=== PATIENT | male | born 1975 | race Asian ===

== ENCOUNTER 2024-07-18 11:02 | Outpatient (AMB) | payer OTHER, SELFPAY ==
--- NOTE | 2024-07-18 11:05 | A.OFFPC_ITS ---
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: No Allergies No Known Allergies Allergy (Verified 07/18/24 11:32) Medication List - Last [facility]18/24 [facility] No Known Home Meds Tobacco use date assessed: 07/18/24 Dental Screening Dental Screen Date: 07/18/24 Did you have a dental visit in the last 12 months?: Yes Did you have a dental problem in the last 6 months where you did not have access to dental care?: No Was dental information given to patient?: Patient has dentist HPI HPI Comments History of Present Illness Details 48-year-old male former smoker Social: has 3 children Family history: Hypertension and diabetes in grandparents otherwise noncontributory Surgical history: Denies Health Maintenance: ? Colon ordered today ? PSA ordered today ? Tdap declined, flu declined Specialists: None Here today to establish care and for complete physical exam. No previous medical records available. He reports no significant medical history. Patient was a former smoker smoking 1 pack per day for the last 20 years, quit May of 2024. Interested in the lung cancer screening program. Wears glasses and contacts overdue for eye exam Reports a new skin lesion that has been increasing in size to his right sabianism that has been noticed over the last few weeks. History of Present Illness Health Maintenance Social History Review of Systems Physical Exam General: Cooperative, healthy appearing, comfortable, no acute distress and well developed Orientation: Patient oriented x3 Limitations: No limitations Head: Normal to inspection Ears: Hearing grossly normal bilaterally, some wax in both ears Nose: Normal external nose present Face and sinus: Normal facial exam Eyes: Appearance normal, both eyes and all related structures, early cataracts noted Neck: Normal visual inspection, Yes full ROM, noted growth on neck Respiratory: Normal respiratory effort and able to speak in complete sentences. Clear to auscultation bilaterally Cardiovascular: Regular rate and rhythm. Normal S1 and S2 GI: Normal to inspection. Soft to palpation and nontender Skin: No rashes or lesions noted, couple of moles present, one on spine deeper into the skin Neuro: Patient oriented x3 Extremities: Normal to inspection, dry skin on feet, no swelling in ankles Plan - Former Tobacco Use: Lung cancer screen ing referral given to assess for any malignancy or precursors due to significant smoking history; advised cessation of smoking is beneficial. - Atypical skin lesions: Dermatology ref erral for evaluation and possible biopsy due to recent development and growth of the lesion. - Early Cataracts Suspected: Eye care re ferral provided for further evaluation and management of suspected early cataracts. - Wellness Examination: Ordered blood wo rk to screen for diabetes and heart disease at patient?s convenience. Discussed lifestyle and wellness management, advised annual wellness checks, and further check-ups as needed. Patient was informed and verbally consented to the use of an ambient scribe for clinic note documentation during this visit. Discussion Notes In today's visit, I discussed with the patient the importance of preventive health measures, including regular cancer screenings such as lung and colon cancer screenings. I explained the risks associated with her history of prolonged smoking and the benefits of obtaining a CT scan for lung cancer screening. The patient agreed to proceed with both screenings after understanding the rationale. Additionally, I addressed the importance of dermatologic evaluation for the recently noted lesion on her neck. I provided referrals for eye examinations due to the observation of early cataracts and discussed the role of regular eye check-ups in managing vision health. The patient was informed about the optional nature of updating the tetanus vaccination, and she opted not to proceed with it currently. Further, I emphasized the need for blood work to assess for conditions such as diabetes and cardiovascular disease. RTO 1 YEAR CPE SOONER PRN [facility] Medical History (Updated 07/18/24 @ 15:19 by Celine Oliveros, 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 home: Yes Do you presently have visiting nurse or other home services: No 75 years or older and lives alone: No Alcohol intake: current Alcohol intake frequency: a few times a month Patient Tobacco Use Status: Current everyday Tobacco user Tobacco use type: Cigarette Cigarette Packs Per Day: 1 Cigarettes Per Day: 20 Years Smoked: 20 e-Cigarette/Vaping Use: Never Used Second Hand Smoke Exposure: No service: No Current occupational status: employed 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 1. Little interest or pleasure in doing things: not at all 2. Feeling down, depressed, or hopeless: not at all 3. Trouble falling or staying asleep, or sleeping too much: not at all 4. Feeling tired or having little energy: not at all 5. Poor appetite or overeating: not at all 6. Feeling bad about yourself - or that you are a failure or have let yourself or your family down: not at all 7. Trouble concentrating on things, such as reading the newspaper or watching television: not at all 8. Moving or speaking so slowly that other people could have noticed. Or the opposite - being so fidgety or restless that you have been moving around a lot more than usual: not at all 9. Thoughts that you would be better off or of hurting yourself in some way: not at all Total score: 0 Depression Screening Interpretation: Negative Depression Screening Done: Yes 89610 - PHQ-9 Billing: Yes Source: Developed by Drs. Faustino Gore, Lita Jordan, Jagdeep Junior and colleagues, with an educational damir from [employer]. Thrive Questionnaire Date Thrive assessed: 07/18/24 I am a: Patient What is your living situation today?: I have a steady place to live Within the past 12 months, did the food you bought not last and you didn't have the money to get more?: Never true Within the past 12 months, did you worry whether your food would run out before you got money to buy more?: Never true Do you have trouble paying for medicines?: No Do you have trouble getting transportation to medical appointments?: No Do you have trouble paying your heating and electricity bill?: No Do you have trouble taking care of your child, family member or friend?: No Do you have trouble with day-to-day activities such as bathing, preparing meals, shopping, managing finances, etc.?: No Are you currently unemployed and looking for a job?: No Are you interested in more education?: No Please select the resources that you would like help with: None Currently or been in a relationship where the following occur: I choose not to answer THRIVE Score: 0 AUDIT C Alcohol Use Questionnaire (AUDIT-C) 1. How often do you have a drink containing alcohol?: 2-4 times a month 2. How many drinks containing alcohol do you have on a typical day when you are drinking?: 3 or 4 3. How often do you have six or more drinks on one occasion?: Monthly Total Score: 5 Score Reviewed/Action Taken: Yes JCARLOS-7 AMB Questionnaire JCARLOS-7 Date JCARLOS - 7 assessed: 07/18/24 Feeling nervous, anxious, or on edge: 0 = Not at all Not being able to stop or control worryin = Not at all Worrying too much about different things: 0 = Not at all Trouble relaxin = Not at all Being so restless that it is hard to sit still: 0 = Not at all Becoming easily annoyed or irritable: 0 = Not at all Feeling afraid as if something awful might happen: 0 = Not at all Total JCARLOS-7 score (0-4 normal; 5-9 mild; 10-14 moderate; 15-21 severe): 0 Source: Developed by Drs. Faustino Gore, Lita Jordan, Jagdeep Junior and colleagues, with an educational damir from [employer]. JCARLOS-7 Assessment Billing JCARLOS-7 Assessment Tool: JCARLOS-7 Assessment 06472 Physical exam (Primary Care) Vital Signs: Last Vital Signs Pulse 120 H 07/18/24 11:12 Resp 14 07/18/24 11:12 BP 138/78 07/18/24 11:12 Pulse Ox 96 07/18/24 11:12 Oxygen Delivery Method Simple Mask 07/18/24 11:12 BMI result Body Mass Index 22.8 Tobacco/Smoking Status: Tobacco use Status Tobacco use date assessed 12/11/24 12/11/24 11:14 Patient Tobacco Use Status Current everyday Tobacco 07/18/24 11:14 Tobacco use type Cigarette 07/18/24 11:14 e-Cigarette/Vaping Use Never Used 07/18/24 11:14 PHQ-9: PHQ-9 Score PHQ-9: Total score 0 07/18/24 11:37 Depression Screening Interpretation: Negative Thrive Assessment: Date of Thrive Assessment Date Thrive assessed 07/18/24 07/18/24 11:08 Currently or been in a relationship where the following occur: I choose not to answer Const Other: General: Well developed, well nourished, in no acute distress. Appears stated age. Head: Normocephalic, atraumatic. Eyes: Pupils are equal, round and reactive to light and accommodation. Conjunctivae are clear. Vision grossly normal. Clouding around iris bilat Ears: TMs clear AU, EACS WNL Nose: Patent, without discharge. Mouth: There are no ulcers or lesions noted. No inflammation, no post nasal drip, no plaques nor exudates. Neck: Supple, no adenopathy or thyromegaly. Lungs: Clear to auscultation bilaterally. No rales, rhonchi or wheeze noted. Good air flow in all rotega. Heart: Regular rate and rhythm. No murmurs, click, rubs or gallops are noted. Abdomen: Bowel sounds present in all quadrants. The abdomen is soft, nontender, with no masses or organomegaly noted. No hernias are noted. Musculoskeletal: Joints are nontender, without swelling, redness, or effusions. Range of motion is observed to be normal. Pulses: Peripheral pulses are equal and palpable bilaterally. Extremities: No clubbing, cyanosis nor edema is noted. Neurologic: Gait and station normal. Cranial Nerves 2-12 intact. Motor strength grossly symmetrical and intact. No sensory loss. Balance normal. Skin: No rashes, ulcers, or lesions noted. Turgor is good. Skin color is good. Hair and nails are without abnormalities, right sabianism is a raised painless lump about the size a marble, on the skin overlying the spine in between his shoulder blades is a flat black atypical appearing mole. Psych: Normal eye contact, affect and mood appropriate, and normal interactions. Patient is alert and appropriate to context. Coding Level of Care Code New Pt Prev Care 40-64y(45514) Diagnoses Encounter for general adult medical examination without abnormal findings Z00.00 Tobacco dependence F17.200 Tetanus, diphtheria, and acellular pertussis (Tdap) vaccination declined Z28.21 Blurred vision, bilateral H53.8 Laboratory exam ordered as part of routine general medical examination Z00.00 Atypical mole D22.9 Face lesion L98.9 Additional Codes JCARLOS-7 Assessment Billing - JCARLOS-7 Assessment Tool: JCARLOS-7 Assessment 34909 ([id number]) PHQ-9 - 27246 - PHQ-9 Billing: Yes ([id number]) Assessment & Plan Assessment & Plan (1) Encounter for general adult medical examination without abnormal findings: Code(s): Z00.00 - Encounter for general adult medical examination without abnormal findings (2) Tobacco dependence: Comment: QUIT 05/2024, 20 PACK YEAR HISTORY Code(s): F17.200 - Nicotine dependence, unspecified, uncomplicated Category: Medical (3) Tetanus, diphtheria, and acellular pertussis (Tdap) vaccination declined: Code(s): Z28.21 - Immunization not carried out because of patient refusal Category: Medical (4) Blurred vision, bilateral: Code(s): H53.8 - Other visual disturbances Category: Medical (5) Laboratory exam ordered as part of routine general medical examination: Code(s): Z00.00 - Encounter for general adult medical examination without abnormal findings Category: Medical (6) Atypical mole: Comment: ON BACK; Code(s): D22.9 - Melanocytic nevi, unspecified Category: Medical (7) Face lesion: Comment: RAISED SKIN LESION RIGHT SCIENTOLOGIST Code(s): L98.9 - Disorder of the skin and subcutaneous tissue, unspecified Category: Medical Plan . Orders: Orders Complete Blood Count no Diff Today Z00.00 - Encounter for general adult medical examination without abnormal findings Hemoglobin A1c Today Z00.00 - Encounter for general adult medical examination without abnormal findings Lipid Panel Today Z00.00 - Encounter for general adult medical examination without abnormal findings Microalbumin, Random (w Creat) Today Z00.00 - Encounter for general adult medical examination without abnormal findings Comprehensive Met. Panel Today Z00.00 - Encounter for general adult medical examination without abnormal findings PSA, Ultra Sensitive Today Z00.00 - Encounter for general adult medical examination without abnormal findings TSH reflex Free T4 Today Z00.00 - Encounter for general adult medical examination without abnormal findings Vitamin B12 and Folate Today Z00.00 - Encounter for general adult medical examination without abnormal findings Vitamin D 25-OH Total Today Z00.00 - Encounter for general adult medical examination without abnormal findings Referrals Lung Cancer Screening Referral F17.200 - Nicotine dependence, unspecified, uncomplicated Open Access Screening Colonoscopy Referral Z12.11 - Encounter for screening for malignant neoplasm of colon, Z12.12 - Encounter for screening for malignant neoplasm of rectum Ophthalmology Referral H53.8 - Other visual disturbances Dermatology Referral D22.9 - Melanocytic nevi, unspecified, L98.9 - Disorder of the skin and subcutaneous tissue, unspecified Patient Instructions: Walk-In Care (Urgent Care): We Make it Easy Walk-in for urgent medical issues such as: ? Seasonal Allergies ? Insect Bites ? Cough ? Diarrhea ? Acute Asthma Attacks ? Back, Knee or Joint Pain ? Ear Infection ? Fever without a Rash ? Headaches ? Nausea ? [place], Rash or Skin Irritation ? Sore Throat ? Sports Physicals ? Vomiting Most insurances are accepted. Patients do not need to be part of the [facility] to seek care at the walk-in clinic. Locations [facility] [place] [address] ? [phone] [facility] [facility] in [place] provides services to ages 18 and over. Open Tuesday-Tuesday: 8 a.m. to 5 p.m. and Tuesday: 9 a.m. to 3 p.m.* *Hours may vary due to staffing availability. To confirm Walk-In Care hours in [place], please call [phone]. [address] [place] [address] ? [phone] [facility] in [place] provides services to ages 12 and over. Open Tuesday-Tuesday: 8 a.m. to 5 p.m. Hours may vary due to staffing availability. To confirm Walk-In Care hours in [place], please call [phone]. LABORATORY SERVICES: [facility] Lab ? Primary Location [address] [place] [address] Tuesday through Tuesday 6:00 AM ? 5:00 PM Tuesday 7:00 AM ? 11:00 AM* [phone] The [facility] Lab is centrally located near the front entrance of the Medical Center for easy outpatient access. Convenient parking is provided for outpatients. *Hours may vary due to staffing availability. To confirm Laboratory hours for any location, please call [phone]. Offsite Location For your convenience, we offer offsite laboratory draw stations at the following locations: [address] [facility], [place] [address] [facility], [address], [place] Tuesday through Tuesday 7:30 AM ? 1:00 PM* [phone] *Hours may vary due to staffing availability. To confirm Laboratory hours for any location, please call [phone] ? [facility] [address] [facility], [place] Tuesday through Tuesday 6:00 AM ? 3:30 PM* Tuesday 6:30 AM ? 3 PM* [phone] *Hours may vary due to staffing availability. To confirm Laboratory hours for any location, please call [phone] [place] [address] Tuesday through Tuesday 7:30 AM ? 4:00 PM* [phone] *Hours may vary due to staffing availability. To confirm Laboratory hours for any location, please call [phone] [place] [address] Tuesday through 9:00 AM ? 4:00 PM* *Hours may vary due to staffing availability. To confirm Laboratory hours for any location, please call [phone]. Appointments are not necessary. Walk-ins are welcome. Like all the departments throughout the [facility], our Lab undergoes frequent reviews to ensure the quality and accuracy of test results, and our staff takes special pride in its status as a nationally accredited facility. Patient Portal: ONE PATIENT. ONE RECORD. BETTER CARE. [facility] has a fully integrated, cutting- edge mobile electronic health information system that has revolutionized the way we care for our patients and manage our organization. This system improves communication and coordination enabling us to provide safe, higher-quality care, and an overall positive experience for staff and patients. Our first priority, as always, is to deliver the highest quality care possible. The system is running in the background supporting that priority. This portal is for all [facility] services and practices. If you are experiencing any technical difficulties with enrolling or logging into the Patient Portal please complete the [facility] Patient Portal Technical Support Form. [facility] now offers a new secure on-line interactive tool for patients to review their health information ? Patient Portal. This interactive web portal will enable patients and their families to take an active role in their care by providing easy, secure access to their health information via the internet. The Patient Portal provides patients with instant access to their health information, including laboratory results, medications, allergies, demographic information, visit history, and more. In addition to managing their own care, parents and health care proxies with authorized consent will appreciate the ability to access the records of those individuals for whom they provide care. Please note: if you wish to gain access (Proxy) to another patient?s portal, you will be required to come to the Medical Records Department in person at [facility]. Both the patient giving proxy access and the proxy will need to provide photo identification and complete the appropriate authorization. The Patient Portal also allows track their appointments online. The [facility] Patient Portal also saves patients time by allowing them to submit updates to their demographic and contact information prior to their visits. Portal email notifications will also alert patients to any new activity on their portal, such as test results and new appointments. In order to initially enroll in the [facility] Patient Portal, you will need to enter some required information including the following: ? your [facility] Medical Record number ? your personal home email address ? name ? date of Please note: In order to enroll in the [facility] Patient Portal, we need to have your email address on file in your electronic medical record. The email address needs to be specific for one person (yourself) in order for your Portal enrollment to be successful. You can update your email address in person with our Registration staff when you are registering for a hospital visit. Otherwise, you will need to come to the Health Information Management (Medical Records) Department at [facility]. We are open from Tuesday ? Tuesday from 7:30 a.m. ? 4:30 p.m. You will be required to present a photo id. Once you have successfully enrolled in the Patient Portal, you will receive a one-time user id and password for the Portal, sent to your email address. This will allow you to log into the Patient Portal within 99 hrs and reset your own logon id and password, and define personal security questions. Once your permanent login and password have been set, you can log into the [facility] Patient Portal at any time via the blue button above or from the Portal Logon button on any page of the [facility] website. [facility] and [facility] encourage all of our patients to enroll in Patient Portal as it presents a valuable opportunity for patients and their families to actively participate in their care and stay healthy Welcome to [facility]. We look forward to working with you. Health screenings for men ages 40 to 64 You should visit your health care provider regularly, even if you feel healthy. The purpose of these visits is to: Screen for medical issues Assess your risk for future medical problems Encourage a healthy lifestyle Update vaccinations and other preventive care services Help you get to know your provider in case of an illness Information Even if you feel fine, you should still see your provider for regular checkups. These visits can help you avoid problems in the future. For example, the only way to find out if you have high blood pressure is to have it checked regularly. High blood sugar and high cholesterol level also may not have any symptoms in the early stages. Simple blood tests can check for these conditions. There are specific times when you should see your provider or receive specific health screenings. The [place] Preventive Services Task Force publishes a list of recommended screenings. Below are screening guidelines for men ages 40 to 64. BLOOD PRESSURE SCREENING Have your blood pressure checked at least once every year. Watch for blood pressure screenings in your area. Ask your provider if you can stop in to have your blood pressure checked. Ask your provider if you need your blood pressure checked more often if: You have diabetes, heart disease, kidney problems, or are overweight or have certain other health conditions You have a first-degree relative with high blood pressure You are Black Your blood pressure top number is from 120 to 129 mm Hg, or the bottom number is from 70 to 79 mm Hg If the top number is 130 mm Hg or greater or the bottom number is 80 mm Hg or greater, this is considered stage 1 hypertension. Schedule an appointment with your provider to learn how you can lower your blood pressure. Effects of age on blood pressure CHOLESTEROL SCREENING Cholesterol screening should begin at age 35 for men with no known risk factors for coronary heart disease. Repeat cholesterol screening should take place: Every 5 years for men with normal cholesterol levels More often if changes occur in lifestyle (including weight gain and diet) More often if you have diabetes, heart disease, kidney problems, or certain other conditions COLORECTAL CANCER SCREENING If you are under age 45, talk to your provider about getting screened. You may need to be screened if you have a strong family history of colon cancer or polyps. Screening may also be considered if you have risk factors such as a history of inflammatory bowel disease or polyps. If you are age 45 to 75, you should be screened for colorectal cancer. There are several screening tests available: A stool-based fecal occult blood (gFOBT) or fecal immunochemical test (FIT) every year A stool sDNA test every 1 to 3 years Flexible sigmoidoscopy every 5 years or every 10 years with stool testing FIT done every year CT colonography (virtual colonoscopy) every 5 years Colonoscopy every 10 years You may need a colonoscopy more often if you have risk factors for colorectal cancer, such as: Ulcerative colitis A personal or family history of colorectal cancer A history of growths in your colon called adenomatous polyps DENTAL EXAM Go to the dentist once or twice every year for an exam and cleaning. Your dentist will evaluate if you have a need for more frequent visits. DIABETES SCREENING All adults who do not have risk factors for diabetes should be screened starting at age 35 and repeated every 3 years. If you have other risk factors for diabetes, such as a first degree relative with diabetes, overweight or obesity, high blood pressure, prediabetes, or a history of heart disease, you may be tested more often. If you are overweight and have other risk factors, such as high blood pressure and are planning to become , screening is recommended. EYE EXAM Have an eye exam every 2 to 4 years ages 40 to 54 and every 1 to 3 years ages 55 to 64. Your provider may recommend more frequent eye exams if you have vision problems or glaucoma risk. Have an eye exam that includes an examination of your retina (back of your eye) at least every year if you have diabetes. IMMUNIZATIONS Commonly needed vaccines include: Flu shot: get one every year COVID-19 vaccine: ask your provider what is best for you Tetanus-diphtheria and acellular pertussis (Tdap) vaccine: have as one of your tetanus-diphtheria vaccines if you did not receive it as an adolescent Tetanus-diphtheria: have a booster (or Tdap) every 10 years Varicella vaccine: receive 2 doses if you never had chickenpox or the varicella vaccine and were born in 1980 or after Hepatitis B vaccine: receive 2, 3, or 4 doses, depending on your exact circumstances, if you did not receive these as a child or adolescent, until age 59 Shingles (herpes zoster) vaccine: at or after age 50 Ask your provider if you should receive other immunizations, especially if you have certain medical conditions, such as diabetes or are at increased risk for some diseases such as pneumonia. INFECTIOUS DISEASE SCREENING Screening for hepatitis C: all adults ages 18 to 79 should get a one-time test for hepatitis C. Screening for human immunodeficiency virus (HIV): all people ages 15 to 65 should get a one-time test for HIV. Depending on your lifestyle and medical history, you may need to be screened for infections such as syphilis, chlamydia, and other infections. LUNG CANCER SCREENING You should have an annual screening for lung cancer with low-dose computed tomography (LDCT) if: You are age 50 to 80 years AND You have a 20 pack-year smoking history AND You currently smoke or have quit within the past 15 years OSTEOPOROSIS SCREENING If you are age 50 to 64 and have risk factors for osteoporosis, you should discuss screening with your provider. Risk factors can include long-term steroid use, low body weight, smoking, heavy alcohol use, having a fracture after age 50, or a family history of hip fracture or osteoporosis. Osteoporosis PHYSICAL EXAM All adults should visit their provider from time to time, even if they are healthy. The purpose of these visits is to: Screen for diseases Assess risk of future medical problems Encourage a healthy lifestyle Update vaccinations and other preventive care services Maintain a relationship with a provider in case of an illness Your height, weight, and body mass index (BMI) should be checked at every exam. During your exam, your provider may ask you about: Depression and anxiety Diet and exercise Alcohol and tobacco use Safety, such as use of seat belts and smoke detectors Your medicines and risk for interactions PROSTATE CANCER SCREENING If you're 55 through 69 years old, before having the test, talk to your provider about the pros and cons of having a PSA test. Ask about: Whether screening decreases your chance of dying from prostate cancer. Whether there is any harm from prostate cancer screening, such as side effects from testing or overtreatment of cancer when discovered. Whether you have a higher risk of prostate cancer than others. If you are age 55 or younger, screening is not generally recommended. You should talk with your provider about if you have a higher risk for prostate cancer. Risk factors include: Having a family history of prostate cancer (especially a brother or father) Being If you choose to be tested, the PSA blood test is repeated over time (yearly or less often), though the best frequency is not known. Prostate examinations are no longer routinely done on men with no symptoms. Prostate cancer SKIN EXAM Your provider may check your skin for signs of skin cancer, especially if you're at high risk. People at high risk include those who have had skin cancer before, have close relatives with skin cancer, or have a weakened immune system. TESTICULAR EXAM The [place] Preventive Services Task Force (USPSTF) now recommends against performing testicular self-exams. Doing testicular self-exams has been shown to have little to no benefit.
[2024-07-18 11:12] VITALS: BP 138/78; PULSE 120; RESP 14; O2SAT 96; BMI 22.8
[2024-07-18 15:16] VITALS: PULSE 99
== END 2024-07-18 11:49 | disposition home or self-care (01) ==
PROVIDERS: Visit Provider Nurse Practitioner Family
DX: Z00.00 Encounter for general adult medical examination without abnormal findings (principal); F17.200 Nicotine dependence, unspecified, uncomplicated; Z28.21 Immunization not carried out because of patient refusal; H53.8 Other visual disturbances; D22.9 Melanocytic nevi, unspecified; L98.9 Disorder of the skin and subcutaneous tissue, unspecified

== ENCOUNTER → 2024-07-18 11:02 | Outpatient (BNVA) | payer OTHER, SELFPAY | PROVIDERS: Visit Provider Nurse Practitioner Family | DX: Z00.01 Encounter for general adult medical examination with abnormal findings (principal); H53.8 Other visual disturbances; D22.5 Melanocytic nevi of trunk; L98.9 Disorder of the skin and subcutaneous tissue, unspecified; Z87.891 Personal history of nicotine dependence | CPT/HCPCS: 96127 ==

== ENCOUNTER 2024-08-20 15:30 | Outpatient (AMB) | payer OTHER, SELFPAY ==
--- NOTE | 2024-08-20 16:19 | A.OFFPC_ITS ---
Intake Visit Reasons: referral urogoly Allergies No Known Allergies Allergy (Verified 08/20/24 16:40) Medication List - Last Reconciled 08/20/24 by KATIANA Yang No Known Home Meds Tobacco use date assessed: 08/20/24 Dental Screening Dental Screen Date: 08/20/24 Did you have a dental visit in the last 12 months?: Yes Did you have a dental problem in the last 6 months where you did not have access to dental care?: No Was dental information given to patient?: Patient has dentist HPI HPI Comments History of Present Illness Details 49-year-old male former smoker Social: has 3 children Family history: Hypertension and diabetes in grandparents otherwise noncontributory Surgical history: Denies Health Maintenance: ?Colon ordered today ?PSA ordered today ?Tdap declined, flu declined Specialists: None Telehealth visit today @ [phone] The patient is a 49-year-old female presenting with urinary complaints. The patient reports that these symptoms have been occurring for approximately six months. She describes the urgency of urination, with an inability to control it if the urge is strong. The urinary output initially seemed minimal, approximately 4 to 5 ounces. Over time, the capacity to hold increased to about 24 ounces, as measured by the patient. The symptoms occurred during the night, necessitating trips to the bathroom. The patient has taken a self-directed approach by using measurements to confirm the changes in her urination pattern. Additionally, the patient experiences bowel incontinence, particularly when there is minimal stool content. There have been no prior examinations or treatments during this conversation regarding these urinary complaints. Review of Systems - Genitourinary: Reports urinary urgency , decreased urine volume, and increased capacity to hold urine. - Gastrointestinal: Reports bowel incont inence with minimal stool content. Discussion Notes During the discussion, I explained to the patient the importance of obtaining blood work and a urinalysis to evaluate her urinary issues. Potential involvement of the prostate was discussed as a factor affecting urination changes. Additionally, I advised that the patient should visit the lab located at our [place] office within the next few days for these tests, emphasizing the convenience and availability Tuesday through Tuesday. For the bowel incontinence, I explained that I placed a referral for a colonoscopy to further investigate, and shared that it is an important procedure to understand the underlying cause. Plan - Complete blood tests ordered at last v isit and new order for urinalysis to evaluate urinary complaints, with focus on prostate health, and to rule out infections. - Schedule a screening colonoscopy with a gastroenterology specialist to evaluate bowel incontinenc - referral placed @ last office visit. - Follow up with lab results and adjust the management plan accordingly. Patient was informed and verbally consented to the use of an ambient scribe for clinic note documentation during this visit. Patient Instructions - Go to the [place] office for blood w ork and urinalysis Tuesday through Tuesday from 7:30 AM to 3:30 PM. - Follow up on scheduling a colonoscopy appointment for the bowel incontinence evaluation. - Report any significant changes or wors ening in symptoms promptly. - Direct all questions or concerns to [facility] office for clarification or further instructions. This note is constructed using voice recognition software. While every effort has been made to ensure accuracy in choir director, still errors may have been included Sometimes, these errors may affect the content or meaning of the given sentence . Total time spent caring for the patient today was 20 minutes. This includes time spent before the visit reviewing the chart, time spent during the visit, and time spent after the visit on documentation Call at [phone] - no answer. message left. Called again at 1641. answered. Gave me new phone # as above Successful contact w/ pt on third attempt [facility] Medical History (Updated 08/20/24 @ 16:51 by Celine Oliveros, [facility]) No pertinent past medical history Surgical History (Updated 07/18/24 @ 11:12 by Jade Rajan MA) No pertinent past surgical history Family History Paternal Grandmother Diabetes Hypertension Social History (Updated 07/18/24 @ 11:10 by Jade Rajan MA) Household Members: Spouse and Children Housing: Apartment Are you a primary youth care worker to a significant other at home: Yes Do you presently have visiting nurse or other home services: No Alcohol intake: current Alcohol intake frequency: a few times a month Patient Tobacco Use Status: Current everyday Tobacco user Tobacco use type: Cigarette Cigarette Packs Per Day: 1 Cigarettes Per Day: 20 Years Smoked: 20 e-Cigarette/Vaping Use: Never Used Second Hand Smoke Exposure: No service: No Current occupational status: employed 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 Faustino Gore, Lita Jordan, Jagdeep Junior and colleagues, with an educational damir from [employer]. Physical exam (Primary Care) Tobacco/Smoking Status: Tobacco use Status Tobacco use date assessed 07/18/24 08/20/24 16:19 Patient Tobacco Use Status Current everyday Tobacco 08/20/24 16:19 Tobacco use type Cigarette 08/20/24 16:19 e-Cigarette/Vaping Use Never Used 08/20/24 16:19 Thrive Assessment: Date of Thrive Assessment Date Thrive assessed 07/18/24 08/20/24 16:19 Telehealth Telehealth Telehealth Platform: [facility] Location of provider rendering services: practice address Location of patient: address on file Patient Identification confirmed using: Name, : Yes Telehealth method: voice only Patient verbally consented to treatment: Yes Patient verbally consented to billing insurance company: Yes Patient informed of any privacy concerns related to visit: Yes Coding Level of Care Code Tele Est Pt Level 3 (03447) Complex EM visit Add On G2211 Diagnoses Urge incontinence of urine N39.41 Urinary Incontinence type: urge incontinence Incontinence of feces, unspecified fecal incontinence type R15.9 Fecal incontinence type: unspecified Assessment & Plan Assessment & Plan (1) Urinary incontinence: Code(s): R32 - Unspecified urinary incontinence Category: Medical Qualifiers: Urinary Incontinence type: urge incontinence Qualified Code(s): N39.41 - Urge incontinence (2) Fecal incontinence: Code(s): R15.9 - Full incontinence of feces Category: Medical Qualifiers: Fecal incontinence type: unspecified Qualified Code(s): R15.9 - Full incontinence of feces Plan . Orders: Orders UA CC w/rflx Micro + Cult Today R32 - Unspecified urinary incontinence
== END 2024-08-20 17:05 | disposition home or self-care (01) ==
LOC: HO.HMCFM 15:30
PROVIDERS: PCP Nurse Practitioner Family; Visit Provider Nurse Practitioner Family
DX: N39.41 Urge incontinence (principal); R15.9 Full incontinence of feces

== ENCOUNTER → 2024-08-20 15:30 | Outpatient (BNVA) | payer OTHER, SELFPAY | PROVIDERS: PCP Nurse Practitioner Family; Visit Provider Nurse Practitioner Family ==

== ENCOUNTER 2025-05-31 07:58 | Outpatient (REF) | payer OTHER, SELFPAY ==
[2025-05-31 11:37] LABS: Hematocrit 44.9 % (42.0-52.0); Hemoglobin 15.4 g/dl (14.0-18.0); Mean Corpuscular HGB Conc 34.3 g/dl (31.0-36.0); Mean Corpuscular Hemoglobin 32.2 pg (27.0-33.0); Mean Corpuscular Volume 93.7 fL (80.0-98.0); NRBC Abs Auto 0.000 X10*3/uL (0.0-0.012); NRBC Pct Auto 0.0 /100WBC (0.0-0.2); Platelet Count 213 X10*3/uL (160-400); Red Blood Count 4.79 X10*6/uL (4.60-5.80); White Blood Count 6.8 X10*3/uL (4.8-10.8)
[2025-05-31 12:28] LABS: Alanine Aminotransferase 24 U/L (0-40); Albumin Level 3.9 g/dL (3.5-5.0); Alkaline Phosphatase 102 U/L (39-117); Anion Gap 13 (12-20); Aspartate Amino Transferase 47 U/L (5-37); Blood Urea Nitrogen 9 mg/dL (9-16); Calcium 8.4 mg/dL (8.4-10.2); Carbon Dioxide 25 mmol/L (22-29); Chloride 97 mmol/L (96-108); Cholesterol 151 mg/dL (<200); Estimated Glomerular Filt Rate > 60; HDL Cholesterol 74 mg/dL (>40); Potassium 4.0 mmol/L (3.3-5.1); Sodium 131 mmol/L (135-145); Total Protein 7.0 g/dL (6.5-8.0); Triglycerides 75 mg/dL (<150)
[2025-05-31 12:41] LABS: Appearance Urine Clear; Glucose Urine UA Negative (Negative); PH 7.0 (5.0-9.0); Specific Gravity - Urine 1.010 (1.005-1.025)
[2025-05-31 12:46] LABS: Folate 5.9 ng/mL (> or = 4.0); Vitamin B12 221 pg/mL (200-900)
[2025-06-05 23:23] LABS: PSA, Ultra Sensitive 0.55 ng/mL
== END 2025-05-31 07:59 | disposition home or self-care (01) ==
LOC: HO.WFDLDS 07:58
PROVIDERS: Visit Provider Nurse Practitioner Family
DX: Z00.00 Encounter for general adult medical examination without abnormal findings (principal); R32 Unspecified urinary incontinence
CPT/HCPCS: 36415; 80053; 80061; 81003; 82043; 82306; 82570; 82607; 82746; 83036; 84153; 84443; 85027

== ENCOUNTER 2025-06-12 11:20 | Outpatient (AMB) | payer OTHER, SELFPAY ==
--- NOTE | 2025-06-12 11:24 | A.OFFPC_ITS ---
Vital Signs 06/12/25 11:27 06/12/25 11:59 Height 5 ft 5 in Weight 135 lb 6 oz BMI 22.5 BP 124/70 Blood Pressure Location Lt brachial Position Sitting Respiration 14 Pulse 123 H 99 Pulse Source Pulse Oximeter Auscultation Temp 97.5 F Temp Source Oral Pulse Oximetry (%) 99 Oxygen Delivery Method Simple Mask Intake Visit Reasons: preop Intake Note: Pre op for dental surgery on 06/26/25. Scanning Tech Required: No Allergies No Known Allergies Allergy (Verified 06/12/25 11:37) Medication List - Last Reconciled 06/12/25 by KATIANA Yang No Known Home Meds Tobacco use date assessed: 06/12/25 Dental Screening Dental Screen Date: 06/12/25 Did you have a dental visit in the last 12 months?: Yes Did you have a dental problem in the last 6 months where you did not have access to dental care?: No Was dental information given to patient?: Patient has dentist HPI HPI Comments History of Present Illness Details 49-year-old male smoker, etoh dependence Social: has 3 children Family history: Hypertension and diabetes in grandparents otherwise noncontributory Surgical history: Denies Health Maintenance: ?Colon ordered today ?PSA ordered today ?Tdap declined, flu declined Specialists: None History of Present Illness The patient is a 49-year-old male presenting for a preoperative visit. Preoperative Evaluation: - The patient is scheduled for extensive oral facial surgery at [facility] [place], which includes removal of teeth, smoothing of jawbones, and dental implant placement. - The procedure will be performed under nasal tracheal general anesthesia for an estimated duration of 3 to 4 hours. Hyponatremia: - Labs from 05/31/2025 revealed a low so dium level of 131. - The patient reports an increase in uri nary frequency for the past several months. - He reports a high salt intake, regular ly using soy sauce or chicken powder in his cooking. - The patient denies taking any over-the -counter medications or supplements. Muscle Cramps: - For the past 7 to 9 months, the patien t has experienced muscle problems, primarily affecting both legs, with the left leg being more pronounced. - He describes a sudden onset of severe muscle pain that initially rendered him unable to walk properly for about 10 days. - He currently experiences nocturnal mus ana cristina cramps in his legs, occurring 2-3 times every night. Past Medical History - Past Surgical History: The patient has been sedated for a dental procedure in the past without any reported complications. - Past Medical History: The patient josias es a history of diabetes. - Social History: The patient smokes tob acco, but is cutting down with plans to quit. - He reports daily alcohol use, consumin g 6-7 light beers per day, which has become a long-term habit. - He denies any illicit drug use. Any past surgical procedures: Denies Any complications from anesthesia or in post-op period: NA ASA or NSAID Use: Denies Current smoker: Yes Alcohol use: Yes, drink 6-7 beers a day. Drug use: Denies Tobacco Use: - The patient is a current smoker. - He reports that he has cut down on smo jamie and plans to quit after the dental surgery. Alcohol Use: - The patient reports drinking alcohol d aily, consuming about 6-7 cans of light beer. - This has been a long-term habit, and h e has never stopped drinking, thus has no history of withdrawal symptoms. METs: > 4 climb flight of stairs, golf, walk, yardwork Medical history: Asthma Denies COPD Likely in the setting of every day smoking Obesity BMI 22.5 Diabetes No NM < 6 weeks, unstable angina, CHF, severe valve disease No Results - Labs (05/31/2025): - CBC was normal. - Sodium was low at 131. - Electrolytes and renal function were o therwise normal. - AST was elevated at 47. - LDL was 62. - Vitamin D was low at 25. - Urinalysis and microalbumin were rolf l. - EKG (Today's visit): Shows normal sinu s rhythm Review of Systems - Constitutional: Denies fever, chills, or feeling sick. - Cardiovascular: Denies chest pain. - Respiratory: Denies shortness of breat h. - Genitourinary: Reports increased urina ry frequency over the past several months. - Musculoskeletal: Reports nocturnal leg cramps occurring 2-3 times per night and a history of severe muscle pain in the legs. Rhysical Exam General: Well developed, well nourished, in no acute distress. Appears stated age. Head: Normocephalic, atraumatic. Eyes: Pupils are equal, round and reactive to light and accommodation. Conjunctivae are clear. Lungs: Clear to auscultation bilaterally. No rales, rhonchi or wheeze noted. Good air flow in all ortega. Heart: Regular rate and rhythm. No murmurs, click, rubs or gallops are noted. Musculoskeletal: Joints are nontender, without swelling, redness, or effusions. Pulses: Peripheral pulses are equal and palpable bilaterally. Pulse in the leg is nice and strong. Extremities: No clubbing, cyanosis nor edema is noted. Psych: Mood and affect appropriate. Medical Decision Making The patient is a 49-year-old male here for preoperative clearance for extensive oral surgery. His recent labs revealed a mild hyponatremia with a sodium of 131, which is the only finding that would potentially delay his procedure. Given that his diet is high in salt and the possibility of a lab processing delay, this result may be spurious. To confirm the finding, a repeat serum sodium level will be obtained today. The patient's reported nocturnal leg cramps could be a manifestation of this electrolyte disturbance, and clarification of his sodium status is warranted. His EKG today was normal, and other lab abnormalities, including a mildly elevated AST likely secondary to alcohol use and low vitamin D, do not pose an immediate contraindication to surgery. Surgical risk factors include his history of smoking and daily alcohol consumption. He has been counseled on the increased risk of infection with smoking and verbalized a plan to quit. Assuming the repeat sodium level is within normal limits, the patient will be cleared for surgery, and the paperwork will be faxed to the surgical center. Plan 1. Preoperative Clearance - A repeat serum sodium level will be dr owusu today to confirm the patient's electrolyte status. - Repeat sodium level is 134 today, the patient will be cleared for the scheduled oral surgery, and the clearance paperwork will be faxed to [facility]. - The patient's EKG showed normal sinus rhythm, which is favorable for surgical clearance. 2. Hyponatremia - The patient's low sodium level of 131 may be a spurious lab error. - A repeat serum sodium test done today 134. 3. Muscle Cramps - The patient's nocturnal leg cramps may be related to the potential electrolyte imbalance. - The results of the repeat sodium lab w ill help guide further assessment. - If the cramps persist despite normal l ab results, the patient was advised to try taking a spoonful of yellow mustard as a natural remedy. 4. Tobacco Use - The patient was informed that smoking increases the risk of infection, especially with oral surgery. - Acknowledged and supported the patient 's plan to quit smoking for the surgery. Patient Instructions - Go to the lab today to have your blood drawn to recheck your salt (sodium) level. - If you do not hear from our office, it means your lab work was normal and your clearance paperwork has been sent to the surgery center. - I will call you at [phone] if you r results are abnormal. - If your leg cramps continue even with normal labs, you can try eating a spoonful of yellow mustard, as it can help with cramps. - Continue with your plan to quit smokin g, as this will help prevent infection after your oral surgery. - A copy of your lab results from today and your last visit will be mailed to your home address. Education Aspirin and NSAIDS should be discontinued one week before surgery to prevent excessive bleeding. If you are a smoker, there is increase risk of post surgical complications. Cessation is encouraged. Follow up with surgeon and all recommendations pre and post operatively. Consent Patient was informed and verbally consented to the use of an ambient scribe for clinic note documentation during this visit. Total time spent caring for the patient today was 30 minutes. This includes time spent before the visit reviewing the chart, time spent during the visit, and time spent after the visit on documentation, reviewing laboratory results, diagnostic imaging, medications, performing a medically necessary evaluation, counseling on diagnoses, care coordination, ordering appropriate tests, ordering appropriate medications, review of tests performed by other providers, reporting test results with the patient, communication with other healthcare providers. 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 Do you presently have visiting nurse or other home services: No 75 years or older and lives alone: No Alcohol intake: current Alcohol intake frequency: a few times a month Patient Tobacco Use Status: Current everyday Tobacco user Tobacco use type: Cigarette Cigarette Packs Per Day: 1 Cigarettes Per Day: 20 Years Smoked: 20 Packs Per Year: 20 Packs per year/per ci.00 e-Cigarette/Vaping Use: Never Used Second Hand Smoke Exposure: No service: No Current occupational status: employed 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 1. Little interest or pleasure in doing things: not at all 2. Feeling down, depressed, or hopeless: not at all 3. Trouble falling or staying asleep, or sleeping too much: not at all 4. Feeling tired or having little energy: not at all 5. Poor appetite or overeating: not at all 6. Feeling bad about yourself - or that you are a failure or have let yourself or your family down: not at all 7. Trouble concentrating on things, such as reading the newspaper or watching television: not at all 8. Moving or speaking so slowly that other people could have noticed. Or the opposite - being so fidgety or restless that you have been moving around a lot more than usual: not at all 9. Thoughts that you would be better off or of hurting yourself in some way: not at all Total score: 0 Depression Screening Interpretation: Negative Depression Screening Done: Yes 27519 - PHQ-9 Billing: Yes Source: Developed by Drs. Faustino Gore, Lita Jordan, Jagdeep Junior and colleagues, with an educational damir from [employer]. Thrive Questionnaire Date Thrive assessed: 06/12/25 I am a: Patient What is your living situation today?: I have a steady place to live Within the past 12 months, did the food you bought not last and you didn't have the money to get more?: Never true Within the past 12 months, did you worry whether your food would run out before you got money to buy more?: Never true Do you have trouble paying for medicines?: No Do you have trouble getting transportation to medical appointments?: No Do you have trouble paying your heating and electricity bill?: No Do you have trouble taking care of your child, family member or friend?: No Do you have trouble with day-to-day activities such as bathing, preparing meals, shopping, managing finances, etc.?: No Are you currently unemployed and looking for a job?: No Are you interested in more education?: No Please select the resources that you would like help with: None Currently or been in a relationship where the following occur: I choose not to answer THRIVE Score: 0 AUDIT C Alcohol Use Questionnaire (AUDIT-C) 1. How often do you have a drink containing alcohol?: 4 or more times a week 2. How many drinks containing alcohol do you have on a typical day when you are drinking?: 5 or 6 3. How often do you have six or more drinks on one occasion?: Daily or almost daily Total Score: 10 JCARLOS-7 AMB Questionnaire JCARLOS-7 Date JCARLOS - 7 assessed: 06/12/25 Feeling nervous, anxious, or on edge: 0 = Not at all Not being able to stop or control worryin = Not at all Worrying too much about different things: 0 = Not at all Trouble relaxin = Not at all Being so restless that it is hard to sit still: 0 = Not at all Becoming easily annoyed or irritable: 0 = Not at all Feeling afraid as if something awful might happen: 0 = Not at all Total JCARLOS-7 score (0-4 normal; 5-9 mild; 10-14 moderate; 15-21 severe): 0 Source: Developed by Drs. Faustino Gore, Lita Jordan, Jagdeep Junior and colleagues, with an educational damir from [employer]. JCARLOS-7 Assessment Billing JCARLOS-7 Assessment Tool: JCARLOS-7 Assessment 80663 Physical exam (Primary Care) Vital Signs: Last Vital Signs Temp 97.5 F 06/12/25 11:27 Pulse 99 06/12/25 11:59 Resp 14 06/12/25 11:27 BP 124/70 06/12/25 11:27 Pulse Ox 99 06/12/25 11:27 Oxygen Delivery Method Simple Mask 06/12/25 11:27 BMI result Body Mass Index 22.5 Tobacco/Smoking Status: Tobacco use Status Tobacco use date assessed 06/12/25 06/12/25 11:29 Patient Tobacco Use Status Current everyday Tobacco 06/12/25 11:29 Tobacco use type Cigarette 06/12/25 11:29 e-Cigarette/Vaping Use Never Used 06/12/25 11:29 Are you ready to quit: No Tobacco cessation counseling provided: Yes Items discussed: Nicotine replacement, QuitWorks and Other Relapse Prevention: discussed the importance of a supportive environment, discussed extending NRT, discussed negative mood or depression after quitting, weight gain after smoking is common and discussed dietary, exercise and/or life style changes Number of minutes spent counselin CPT code: 94181 - 4-10 Minutes PHQ-9: PHQ-9 Score PHQ-9: Total score 0 06/12/25 11:37 Depression Screening Interpretation: Negative Thrive Assessment: Date of Thrive Assessment Date Thrive assessed 06/12/25 06/12/25 11:29 Currently or been in a relationship where the following occur: I choose not to answer Office Procedures EKG [id number], Complete Results Reviewed Results Reviewed: ENTERED: 06/12/25-[address]: ORDERED: Lytes Test Result Flag Reference Sodium 134 L 135-145 mmol/L Potassium 4.8 3.3-5.1 mmol/L CL 100 96-108 mmol/L CO2 27 22-29 mmol/L Gap 12 12-20 Coding Level of Care Code Est Pt Level 4 (80802) Complex EM visit Add On G2211 Diagnoses Pre-op evaluation Z01.818 Hyponatremia E87.1 Tobacco dependence F17.200 Vitamin D deficiency E55.9 Uncomplicated alcohol dependence F10.20 Substance use status: uncomplicated CPT Codes EKG - CPT: 95436-Tjlpvqxflvqwdfefv, Complete ([id number]) Additional Codes JCARLOS-7 Assessment Billing - JCARLOS-7 Assessment Tool: JCARLOS-7 Assessment 40419 ([id number]) PHQ-9 - 66179 - PHQ-9 Billing: Yes ([id number]) Vital Signs *Quality* - CPT code: 80277 - 4-10 Minutes ([id number]) Assessment & Plan Assessment & Plan (1) Pre-op evaluation: Code(s): Z01.818 - Encounter for other preprocedural examination Plan: Patient is medically cleared to proceed. (2) Hyponatremia: Code(s): E87.1 - Hypo-osmolality and hyponatremia Category: Medical (3) Tobacco dependence: Comment: 20 PACK YEAR HISTORY Smoking Cessation How to Quit There are a lot of ways to quit smoking and many resources to help you. Family members, friends, and co-workers may be supportive or encouraging, but to be successful the desire and commitment to quit must be your own. Most people who have been able to successfully quit smoking made at least one unsuccessful attempt in the past. Try not to view past attempts to quit as failures, but rather as learning experiences. Stopping smoking or using smokeless tobacco is difficult, but anyone can do it. Know the symptoms to expect when you stop. Common symptoms include: ? An intense craving for nicotine ? Anxiety, tension, restlessness, frustration, or impatience ? Difficulty concentrating ? Drowsiness or trouble sleeping, as well as bad dreams and nightmares ? Drowsiness and trouble sleeping ? Headaches ? Increased appetite and weight gain ? Irritability or depression How severe your symptoms are depends on how long you smoked and how many cigarettes you smoked each day. Feel ready to quit? ? First and foremost, set a quit date and quit completely on that day. Before your quit date, you may begin reducing your cigarette use. But remember, there is no safe level of cigarette smoking. ? List the reasons why you want to quit. Include both short- and long-term benefits. ? Identify the times you are most likely to smoke. For example, do you tend to smoke when feeling stressed or down? When out at night with friends? While drinking coffee or alcohol? When bored? While driving? Right after a meal or sex? During a work break? While watching TV or playing cards? When you are with other smokers? ? Let all of your friends, family, and co-workers know of your plan to stop smoking and your quit date. Just being aware that they know what you're going through can be helpful, especially when you are grumpy. ? Get rid of all your cigarettes just before the quit date, and clean out anyt tosin that smells like smoke, such as clothes and furniture. Make a plan about what you will do instead of smoking at those times when you are most likely to smoke. ? Be as specific as possible. For example, drink tea instead of coffee -- tea may not trigger the desire for a cigarette. Or, take a walk when you feel stressed. ? Remove ashtrays and cigarettes from the car. Place pretzels or hard candies there instead. Pretend-smoke with a straw. ? Find activities that focus your hands and mind but are not taxing or fattening. Computer games, solitaire, knitting, sewing, and crossword puzzles may help. ? If you normally smoke after eating, find other ways to end a meal. Play a tape or CD, eat a piece of fruit, get up and make a phone call, or take a walk (a good distraction that also rucker peter ories). Make other changes in your lifestyle. ? Change your daily schedule and habits. Eat at different times or eat several small meals instead of three large ones. Sit in a different chair or even a different room. ? Satisfy your oral habits by eating celery or other low-calorie snack, chewing sugarless gum, or sucking on a cinnamon stick. ? Go to public places and restaurants where smoking is prohibited or restricted. ? Eat regular meals and don't eat too much candy or sweet things. ? Get more exercise. Take walks or ride a bike. Exercise helps relieve the urge to smoke. Set short-term quitting goals and reward yourself when you meet them. ? Every day, put the money you normally spend on cigarettes in a jar. Then buy something pleasurable after a period of time. ? Try not to think about all the days ahead you will need to avoid smoking. Take it one day at a time. ? Even one puff or one cigarette will make your desire for more cigarettes even stronger. However, it is normal to make mistakes. So even if you have one cigarette, you don't need to take the next one. Other tips to help you quit smoking and stick to it: ? Enroll in a smoking cessation program (hospitals, health departments, community centers, and work sites often offer programs). Learn about self-hypnosis or other techniques. ? Ask your health care provider about prescription medications that are safe and appropriate for you. ? Find out about nicotine patches, gum, and sprays. The [employer]'s web site -- www.cancer.org -- is an excellent resource for smokers who are trying to quit, and the [employer] [place] [employer] can help some smokers kick the habit. Above all, don't get discouraged if you aren't able to quit smoking the first time. Nicotine addiction is a hard habit to break. Try something different next time. Develop new strategies, and try again. Many people take several attempts to finally kick the habit. Code(s): F17.200 - Nicotine dependence, unspecified, uncomplicated Category: Medical (4) Vitamin D deficiency: Code(s): E55.9 - Vitamin D deficiency, unspecified Category: Medical (5) Alcohol dependence: Code(s): F10.20 - Alcohol dependence, uncomplicated Category: Medical Qualifiers: Substance use status: uncomplicated Qualified Code(s): F10.20 - Alcohol dependence, uncomplicated Plan . Orders: Orders Electrolytes Today E87.1 - Hypo-osmolality and hyponatremia
[2025-06-12 11:27] VITALS: BP 124/70; PULSE 123; RESP 14; TEMP 36.4; O2SAT 99; BMI 22.5
[2025-06-12 11:59] VITALS: PULSE 99
== END 2025-06-12 11:50 | disposition home or self-care (01) ==
LOC: HO.HMCFM 11:21
PROVIDERS: PCP Nurse Practitioner Family; Visit Provider Nurse Practitioner Family
DX: Z01.818 Encounter for other preprocedural examination (principal); E87.1 Hypo-osmolality and hyponatremia; F17.200 Nicotine dependence, unspecified, uncomplicated; E55.9 Vitamin D deficiency, unspecified; F10.20 Alcohol dependence, uncomplicated

== ENCOUNTER 2025-06-12 11:20 | Outpatient (REF) | payer OTHER, SELFPAY ==
[2025-06-12 14:27] LABS: Anion Gap 12 (12-20); Carbon Dioxide 27 mmol/L (22-29); Chloride 100 mmol/L (96-108); Potassium 4.8 mmol/L (3.3-5.1); Sodium 134 mmol/L (135-145)
== END 2025-06-12 11:21 | disposition home or self-care (01) ==
LOC: HO.WFDLDS 11:20
PROVIDERS: PCP Nurse Practitioner Family; Visit Provider Nurse Practitioner Family
DX: Z01.818 Encounter for other preprocedural examination (principal); E87.1 Hypo-osmolality and hyponatremia; F10.20 Alcohol dependence, uncomplicated; R25.2 Cramp and spasm; F17.210 Nicotine dependence, cigarettes, uncomplicated; E55.9 Vitamin D deficiency, unspecified
CPT/HCPCS: 36415; 80051; 93005; 96127; 99212